=== PATIENT | male | born 1955 | race Caucasian/White ===

== ENCOUNTER 2017-05-17 14:08 | Emergency (ER) | payer OTHER ==
[2017-05-17] MEDS ORDERED: Vancomycin(*) 1,000 MG in NS 0.9% 250 ML* 250 ML IVPB ONE (17:32)
[2017-05-17 17:56] LABS: Hematocrit 29 % (42-52); Hemoglobin 9.7 g/dl (14.0-18.0); Mean Corpuscular HGB Conc 34 g/dl (31-36); Mean Corpuscular Hemoglobin 31 pg (27-31); Mean Corpuscular Volume 93 fL (80-94); Mean Platelet Volume 7 um3 (7.4-10.4); Red Blood Count 3.11 10^6/ul (4.0-5.4); Red Cell Distribution Width 14 % (10.5-15); White Blood Count 18.9 10^3/ul (3.5-10.8)
[2017-05-17] MEDS ORDERED: Morphine INJ* 2 MG/ML 1 ML CARPUJECT IV ONE (17:59)
--- NOTE | 2017-05-17 18:09 | RAD ---
Indication: Pain and swelling. Necrotic fifth digit. Comparison: No relevant prior exams available on the [facility] PACS for comparison. Technique: AP, lateral, and oblique views RIGHT foot. Report: Soft tissue swelling about the foot without focality. No subcutaneous emphysema evident. No fracture, malalignment, periosteal reaction, or osteolysis evident. Normal variant bipartite sesamoid at the lateral head of the flexor hallucis brevis. IMPRESSION: Soft tissue swelling. No radiographic stigmata of osteomyelitis.
[2017-05-17 18:14] LABS: Albumin 3.4 g/dL (3.2-5.2); BUN/Creatinine Ratio 22.4 (8-20); C Reactive Protein 189.45 mg/L (< 5.00); Calcium 9.3 mg/dL (8.6-10.3); EGFR African American 116.7 (>60); EGFR Non-African American 90.7 (>60); Globulin 4.1 g/dL (2-4); Potassium 4.1 mmol/L (3.5-5.0); Total Bilirubin 0.3 mg/dL (0.2-1.0); Total Protein 7.5 g/dL (6.4-8.9)
[2017-05-17 18:23] LABS: Urine Bilirubin Negative (Negative); Urine Glucose Negative (Negative); Urine Nitrite Negative (Negative)
--- NOTE | 2017-05-17 18:32 | ED ---
Jacinto Echeverria Angela, scribed for David Moreland MD on 05/17/17 at 1718 . Lower Extremity - HPI Summary HPI Summary: This pt is a 62 y/o male presenting to [facility] c/o right foot pain especially the first and second toe for the last 2 weeks. He states that he noticed his toe was black just today may be late last night. Pt reports he had 4 stents placed in his right leg approximately 12 months ago by his surgeon in [place]. He reports that he had a scheduled appointment with his vascular surgeon on May 08 but they called him and it was moved to June 05. Pt lives in an assisted living care facility ([facility]) in [place], [place]. He has PMH significant for DM, HTN, dyslipidemia and PAD and PVD. HE still smoke 5 cigarrets per day and he takes and ASA daily. - History of Current Complaint Chief Complaint: EDExtremityLower Stated Complaint: RT FOOT/GREAT TOE PAIN Time Seen by Provider: 05/17/17 17:06 Hx Obtained From: Patient Onset of Pain: Days - right great toe pain Onset/Duration: Weeks - right great toe pain Pain Intensity: 8 Pain Scale Used: 0-10 Numeric Timing: Constant, Lasting Weeks - pain Location: Is Discrete @ - right great toe Associated Signs And Symptoms: Positive: Other - black great toe - Allergies/Home Medications Allergies/Adverse Reactions: Allergies Allergy/AdvReac Type Severity Reaction Status Date / Time No Known Allergies Allergy Verified 05/17/17 14:11 Home Medications: Home Medications Acetaminophen TAB* [Tylenol TAB*] 650 mg PO Q6H PRN 05/17/17 [History Confirmed 05/17/17] Aspirin EC Low Dose* [Ecotrin EC Low Dose 81 MG*] 81 mg PO DAILY 05/17/17 [ History Confirmed 05/17/17] Atenolol TAB* [Tenormin TAB* 25 MG] 25 mg PO DAILY 05/17/17 [History Confirmed 05/17/17] Atorvastatin* [Lipitor*] 40 mg PO DAILY 05/17/17 [History Confirmed 05/17/17] Cholecalciferol TAB* [Vitamin D TAB*] 1,000 unit PO DAILY 05/17/17 [History Confirmed 05/17/17] Collagenase 250 MG/GM OINT* [Santyl 250 mg/gm Oint*] 1 applic TOPICAL DAILY PRN 05/17/17 [History Confirmed 05/17/17] Emollient [Lubriderm Daily Moisture] 1 lot TOPICAL TID PRN 05/17/17 [History Confirmed 05/17/17] Ezetimibe TAB* [Zetia TAB*] 10 mg PO DAILY 05/17/17 [History Confirmed 05/17/17] Gabapentin CAP(*) [Neurontin 400 mg CAP(*)] 400 mg PO BEDTIME 05/17/17 [History Confirmed 05/17/17] Lisinopril TAB* [Prinivil TAB*] 10 mg PO DAILY 05/17/17 [History Confirmed 05/17] Venlafaxine HCl [Effexor XR-] 37.5 mg PO BID 05/17/17 [History Confirmed ] buPROPion TAB* [Wellbutrin TAB*] 75 mg PO BID 05/17/17 [History Confirmed ] glipiZIDE TAB* [Glucotrol TAB*] 5 mg PO QPM 05/17/17 [History Confirmed 05/17/17 ] glipiZIDE TAB* [Glucotrol TAB*] 7.5 mg PO QAM 05/17/17 [History Confirmed ] metFORMIN* [Glucophage 500 MG TAB *] 1,000 mg PO BID 05/17/17 [History Confirmed 05/17/17] PMH/Surg Hx/FS Hx/Imm Hx Endocrine/Hematology History: Reports: Hx Diabetes Cardiovascular History: Denies: Hx Hypertension Infectious Disease History: No Infectious Disease History: Reports: Hx of Known/Suspected MRSA Denies: Traveled Outside the [place] in Last 30 Days - Social History Lives: Assisted Living - [facility] Alcohol Use: None Hx Substance Use: No Substance Use Type: Reports: None Review of Systems Negative: Fever, Chills Eyes: Negative ENT: Negative Cardiovascular: Negative Respiratory: Negative Genitourinary: Negative Positive: Other - right great toe pain Positive: Other - black right great toe All Other Systems Reviewed And Are Negative: Yes Physical Exam - Summary Physical Exam Summary: VITAL SIGNS: Reviewed. GENERAL: Patient is a well-developed and nourished male who is lying comfortable in the stretcher. Patient is not in any acute respiratory distress. HEAD AND FACE: No signs of trauma. No ecchymosis, hematomas or skull depressions. No sinus tenderness. EYES: PERRLA, EOMI x 2, No injected conjunctiva, no nystagmus. EARS: Hearing grossly intact. Ear canals and tympanic membranes are within normal limits. MOUTH: Oropharynx within normal limits. NECK: Supple, trachea is midline, no adenopathy, no JVD, no carotid bruit, no c- spine tenderness, neck with full ROM. CHEST: Symmetric, no tenderness at palpation LUNGS: Clear to auscultation bilaterally. No wheezing or crackles. CVS: Regular rate and rhythm, S1 and S2 present, no murmurs or gallops appreciated. ABDOMEN: Soft, non-tender. No signs of distention. No rebound no guarding, and no masses palpated. Bowel sounds are normal. EXTREMITIES: FROM in all major joints, no edema, no cyanosis or clubbing. There are no pulses in the right lower extremity, not even with a doppler. On the RLE : there is necrosis on the first digit and on the second digit there is white discoloration secondary to vascular insufficiency. This has been going on for 2 weeks. NEURO: Alert and oriented x 3. No acute neurological deficits. Speech is normal and follows commands. SKIN: Dry and warm Triage Information Reviewed: Yes Vital Signs On Initial Exam: Initial Vitals Temp Pulse Resp BP Pulse Ox 97.0 F 72 16 109/52 97 05/17/17 14:11 05/17/17 14:11 05/17/17 14:11 05/17/17 14:11 05/17/17 14:11 Vital Signs Reviewed: Yes Diagnostics - Vital Signs Vital Signs Temp Pulse Resp BP Pulse Ox 05/17/17 14:11 97.0 F 72 16 109/52 97 - Laboratory Lab Results: Lab Results 05/17/17 Range/Units 17:38 WBC 18.9 H (3.5-10.8) 10^3/ul RBC 3.11 L (4.0-5.4) 10^6/ul Hgb 9.7 L (14.0-18.0) g/dl Hct 29 L (42-52) % MCV 93 (80-94) fL MCH 31 (27-31) pg MCHC 34 (31-36) g/dl RDW 14 (10.5-15) % Plt Count 558 H (150-450) 10^3/ul MPV 7 L (7.4-10.4) um3 Neut % (Auto) 81.3 (38-83) % Lymph % (Auto) 9.2 L (25-47) % Wheeler % (Auto) 7.5 (1-9) % Eos % (Auto) 1.2 (0-6) % Baso % (Auto) 0.8 (0-2) % Absolute Neuts (auto) 15.4 H (1.5-7.7) 10^3/ul Absolute Lymphs (auto) 1.7 (1.0-4.8) 10^3/ul Absolute Monos (auto) 1.4 H (0-0.8) 10^3/ul Absolute Eos (auto) 0.2 (0-0.6) 10^3/ul Absolute Basos (auto) 0.1 (0-0.2) 10^3/ul Absolute Nucleated RBC 0 10^3/ul Nucleated RBC % 0 ESR Pending Result Diagrams: 05/17/17 17:38 05/17/17 17:38 Lab Statement: Any lab studies that have been ordered have been reviewed, and results considered in the medical decision making process. - Radiology Right foot XR Xray Interpretation: Positive (See Comments) - IMPRESSION: Soft tissue swelling. No radiographic stigmata of osteomyelitis. ED physician has reviewed this radiology report and agrees. Radiology Interpretation Completed By: Radiologist Lower Extremity Course/Dx - Course Assessment/Plan: This pt is a 62 y/o male presenting to [facility] c/o right foot pain especially the first and second toe for the last 2 weeks. He states that he noticed his toe was black just today may be late last night. Pt reports he had 4 stents placed in his right leg approximately 12 months ago by his surgeon in [place]. He reports that he had a scheduled appointment with his vascular surgeon on May 08 but they called him and it was moved to June 05. Pt lives in an assisted living care facility ([facility]) in [place], [place]. He has PMH significant for DM, HTN, dyslipidemia and PAD and PVD. HE still smoke 5 cigarrets per day and he takes and ASA daily. Blood work w/o a significant abnormality except for WBCs 18.9, slight anemia hb 9.7 and Hct 29. Platelets 558. Glucose 151, lactic acid 2.1, CRP 189. Initially I was not able to feel pulses. Using doppler I was not able to obtain pulses. I obtained a IV access and IVF given. He was given Vancomycin for his infection and gangrene. I discussed my physical exam and findings with Dr. Rocha from [facility] and he accepted the patient for transfer. Dr. Rocha agreed with current management. Patient was given one dose of Morphine for pain. Patient is hemodynamically stable and A+OX3. - Diagnoses Differential Diagnosis/HQI/PQRI: Positive: Cellulitis, Fracture (Closed), Infection, Osteomyelitis Provider Diagnoses: acute ischemic RLE, secondary to arterial occlusion, Necrosis of toe - Physician Notifications Discussed Care Of Patient With: Dr. Rocha Time Discussed With Above Provider: 17:50 Instructed by Provider To: Other - I discussed the pt's case with Dr. Rocha, from [facility], who has agreed to admit the pt. Discharge - Discharge Plan Condition: Stable Disposition: TRANS HIGHER LVL OF CARE FAC Discharge Disposition Comment: [facility] Referrals: Non Staff,Doctor [Primary Care Provider] - The documentation as recorded by the Jacinto ramirez Angela accurately reflects the service I personally performed and the decisions made by me, David Moreland MD.
[2017-05-17 18:37] LABS: Erythrocyte Sed Rate 120 mm/Hr (0-20)
[2017-05-17 19:40] VITALS: BP 137/68
--- NOTE | 2017-05-18 08:52 | PN ---
Progress Note - Progress Note Date of Service: 05/18/17 Note: Patient wound culture grew MRSA. patient given vancomycin here prior to transfer to [facility] so no further action needed.
== END 2017-05-17 19:40 | disposition short-term general hospital (02) ==
LOC: ED 14:08
DX: I74.3 Embolism and thrombosis of arteries of the lower extremities (principal); I96 Gangrene, not elsewhere classified; M79.671 Pain in right foot
CPT/HCPCS: 36415; 80053; 81003; 83605; 85025; 85652; 86140; 87040; 87070; 87077; 87150; 87186; 87205; 87640; 87641; 96374; 99285; J2270; J3370

== ENCOUNTER 2018-07-09 13:13 | Emergency (ER) | payer OTHER ==
--- NOTE | 2018-07-09 14:14 | ED ---
Complex/Multi-Sys Presentation - HPI Summary HPI Summary: Patient is a 63-year-old male who presents emergency department for elevated glucose. Patient resides at the [facility] and has a history of drug and alcohol abuse. Patient states that his glucose was checked today and was noted to be in the 300s and was referred to the ER. Patient has no complaints. Patient denies recent illness, fever or chills, cough, abdominal pain, urinary symptoms. He does note one episode of vomiting today without diarrhea. Symptoms are moderate in severity. No current modifying factors. Patient currently taking metformin and glipizide for glucose control. - History Of Current Complaint Chief Complaint: EDDiabeticProb Time Seen by Provider: 07/09/18 13:22 Hx Obtained From: Patient, Medical Records - Allergies/Home Medications Allergies/Adverse Reactions: Allergies Allergy/AdvReac Type Severity Reaction Status Date / Time No Known Allergies Allergy Verified 05/17/17 14:11 PMH/Surg Hx/FS Hx/Imm Hx Previously Healthy: Yes Endocrine/Hematology History: Reports: Hx Diabetes Cardiovascular History: Denies: Hx Hypertension Infectious Disease History: No Infectious Disease History: Reports: Hx of Known/Suspected MRSA Denies: Traveled Outside the [place] in Last 30 Days - Family History Known Family History: Positive: Diabetes - Social History Occupation: Retired Lives: Assisted Living Alcohol Use: None Hx Substance Use: No Substance Use Type: Reports: None Smoking Status (MU): Former Smoker Review of Systems Constitutional: Negative Negative: Fever, Chills Eyes: Negative ENT: Negative Cardiovascular: Negative Respiratory: Negative Positive: Vomiting. Negative: Abdominal Pain, Diarrhea, Nausea Genitourinary: Negative Musculoskeletal: Negative Skin: Negative Neurological: Negative All Other Systems Reviewed And Are Negative: Yes Physical Exam Triage Information Reviewed: Yes Vital Signs On Initial Exam: Initial Vitals Temp Pulse Resp BP Pulse Ox 96.2 F 63 18 160/85 96 07/09/18 13:19 07/09/18 13:19 07/09/18 13:19 07/09/18 13:19 07/09/18 13:19 Vital Signs Reviewed: Yes Appearance: Positive: Well-Appearing - Pt. sitting up in NAD. Pleasant. Answers questions appropriately. 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 No ulcerations or wounds to bilateral lower extremities. Neurological: Positive: Normal, CN Intact II-III Psychiatric: Positive: Affect/Mood Appropriate - Jean Claude Coma Scale Best Eye Response: 4 - Spontaneous Best Motor Response: 6 - Obeys Commands Best Verbal Response: 5 - Oriented Coma Scale Total: 15 Diagnostics - Vital Signs Vital Signs Temp Pulse Resp BP Pulse Ox 07/09/18 13:19 96.2 F 63 18 160/85 96 - Laboratory Result Diagrams: 07/09/18 14:36 07/09/18 14:36 Lab Statement: Any lab studies that have been ordered have been reviewed, and results considered in the medical decision making process. Complex Multi-Symp Course/Dx Course Of Treatment: Pt. sent to ED by assisted living facility for elevated glucose. Pt. in ED has no complaints and denies pain. He is afebrile and nontoxic. VS stable. Will check basic labs and urine. CBC shows leukocytosis of 16.4. CMP shows glucose of 300, normal anion gap, K minimally elevated at 5.1. Chest xray is negative for infiltrate or acute findings, per radiology. Pending U/A at this time. U/A shows trace ketones and glucose without signs of infection. On re-exam pt. sitting up in bed watching TV. He ate tuna salad and milk in ED without vomiting. Pt. states he is feeling well. Pt[facility] Pt. examined by Dr. Arriola as well. Plan to dc home. Advised pt. he needs to see his PCP in 1-2 days for repeat labs and evaluation. To increase fluids. Will return to ER if sxs change or worsen. Pt. understands and agrees with plan. Assessment/Plan: Assessed the patient after being evaluated by Dash PENNINGTON. Hyperglycemia and leukocytosis today, without fever. Source may be related to one episode of dry heaving this morning, perhaps starting viral syndrome. Foot exam unremarkable, urine, CXR, labs, all unremarkable. Patient nontoxic appearance, ambulatory, tolerating PO. Plan in conjunction with Dash PENNINGTON : Close followup [facility] within 24-48 hours (I gave pamphlet), increase metformin to 1500 in AM and 1000 mg PM - temporary measure for a few days until reassess. Increase oral intake. - Diagnoses Provider Diagnoses: Leukocytosis, Hyperglycemia, Uncontrolled diabetes mellitus, Dehydration Discharge - Sign-Out/Discharge Documenting (check all that apply): Patient Departure - Discharge Plan Condition: Good Disposition: HOME Prescriptions: Ondansetron TAB* [Zofran 4 MG Tab*] 4 mg PO Q6H PRN #12 tab PRN Reason: Nausea Patient Education Materials: Dehydration (ED), Acute Nausea and Vomiting (ED) Referrals: [facility] [Outside] Non Staff,Doctor [Medical Doctor] - Additional Instructions: Increase to three metformin tablets in the morning. Call PCP tomorrow to schedule an appointment for 1-2 days for re-evaluation and repeat blood work Increase fluids Return to ER if symptoms change or worsen - Billing Disposition and Condition Condition: GOOD Disposition: Home
[2018-07-09 14:54] LABS: Hematocrit 42 % (42-52); Hemoglobin 13.9 g/dl (14.0-18.0); Mean Corpuscular HGB Conc 33 g/dl (31-36); Mean Corpuscular Hemoglobin 32 pg (27-31); Mean Corpuscular Volume 95 fL (80-94); Mean Platelet Volume 8.8 fL (7.4-10.4); Platelet Count 264 10^3/ul (150-450); Red Blood Count 4.39 10^6/ul (4.00-5.40); Red Cell Distribution Width 14 % (10.5-15); White Blood Count 16.4 10^3/ul (3.5-10.8)
[2018-07-09 15:19] LABS: EGFR Non-African American 78.6 (>60)
[2018-07-09 15:24] LABS: Monocytes % 2 %
[2018-07-09 15:26] LABS: ABS Neutrophils 14.8 10^3/ul (1.5-7.7)
[2018-07-09 17:50] LABS: Urine Appearance Cloudy; Urine Blood Negative (Negative); Urine Color Yellow; Urine Ketones Trace (Negative); Urine Protein Negative (Negative); Urine Specific Gravity 1.025 (1.010-1.030); Urine Urobilinogen Negative (Negative)
[2018-07-09 19:20] VITALS: BP 129/59
== END 2018-07-09 19:19 | disposition home or self-care (01) ==
LOC: ED 13:13
DX: E11.65 Type 2 diabetes mellitus with hyperglycemia (principal); Z79.84 Long term (current) use of oral hypoglycemic drugs; D72.829 Elevated white blood cell count, unspecified; E86.0 Dehydration; Z87.891 Personal history of nicotine dependence
CPT/HCPCS: 36415; 71046; 80053; 81003; 85025; 99283